=== PATIENT | female | born 1955 | race Caucasian/White ===

== ENCOUNTER 2021-02-13 17:32 | Inpatient (IN) | payer MEDICARE ==
[2021-02-13 17:49] VITALS: BMI 29.0
[2021-02-13] MEDS ORDERED: Acetaminophen 325 MG TAB PO PRN (18:15)
[2021-02-13] MEDS ORDERED: Ondansetron PF 4 MG/2 ML Vial IVP PRN (18:15)
[2021-02-13] MEDS: Morphine 4 MG/ML VIAL SLOW IVP PRN (19:51)
[2021-02-13] MEDS: Lactated Ringer's 1,000 ML IV SCH (19:53)
[2021-02-13] MEDS: HYDROcodone/Acetaminophen 10/325 mg Tablet PO PRN (22:42)
[2021-02-13] MEDS: Cefepime 1 GM in Sodium Chloride 0.9% 100 ML IVPB SCH (23:15)
[2021-02-14] MEDS: Morphine 4 MG/ML VIAL SLOW IVP PRN ×6 (02:06→22:45)
[2021-02-14 05:22] LABS: #Eosinphils 0.1 10x3/uL (0.0-0.5); #Monocytes 0.8 10x3/uL (0.0-1.1); #Neutrophils 10.1 10x3/uL (1.5-8.4); %Basophils 0.3 % (0.0-2.0); %Lymphocytes 7.9 % (18.0-47.0); %Monocytes 6.5 % (0.0-10.0); %Neutrophils 83.4 % (40.0-75.0); Hemoglobin 11.4 g/dL (12.0-15.5); Mean Corpuscular HGB CONC 34.1 g/dL (32.0-36.0); Mean Corpuscular Hemoglobin 32.3 pg (27.0-33.0); Mean Corpuscular Volume 94.6 fl (81.6-98.3); Mean Platelet Volume 10.4 fl (7.4-10.4); Platelet Count 132 10x3/uL (150-450); RBC Distribution Width 12.6 % (11.5-14.5); Red Blood Cell (RBC) Count 3.53 10x6/uL (3.90-5.03); White Blood Cell (WBC) Count 12.1 10x3/uL (3.5-10.5)
[2021-02-14 05:37] LABS: Anion Gap 11 mmol/L (10-20); BUN (Urea Nitrogen) 13 mg/dL (9.8-20.1); Calc. Creatinine Clearance 98 mL/min (70-130); Calcium 9.2 mg/dL (7.8-10.44); Carbon Dioxide 24 mmol/L (23-31); Chloride 105 mmol/L (98-107); Glucose 103 mg/dL (80-115); Potassium 3.1 mmol/L (3.5-5.1); Sodium 137 mmol/L (136-145)
[2021-02-14] MEDS: Lactated Ringer's 1,000 ML IV SCH ×2 (05:46→19:21)
[2021-02-14] MEDS ORDERED: Vancomycin HCl 1 GM in Sodium Chloride 0.9% 250 ML 250 ML IVPB SCH (08:00)
[2021-02-14] MEDS ORDERED: Potassium Chloride 20 MEQ TAB PO SCH (08:30)
[2021-02-14] MEDS: HYDROcodone/Acetaminophen 10/325 mg Tablet PO PRN ×2 (08:32→20:16)
[2021-02-14] MEDS: Bupropion 150 MG XL TAB PO SCH (09:58)
[2021-02-14] MEDS: Aspirin 81 mg Enteric Coated Tablet PO SCH (09:58)
[2021-02-14] MEDS: Cefepime 1 GM in Sodium Chloride 0.9% 100 ML IVPB SCH (12:31)
[2021-02-14] MEDS ORDERED: Morphine 4 MG/ML VIAL SLOW IVP SCH (13:30)
[2021-02-14] MEDS: Atorvastatin Calcium 40 MG TAB PO SCH (20:16)
[2021-02-14] MEDS: Vancomycin HCl 1 GM in Sodium Chloride 0.9% 250 ML 250 ML IVPB SCH (20:19)
[2021-02-14] MEDS: traZODone HCl 50 MG TAB PO SCH (20:30)
[2021-02-15] MEDS: Cefepime 1 GM in Sodium Chloride 0.9% 100 ML IVPB SCH ×2 (01:05→13:03)
[2021-02-15] MEDS: HYDROcodone/Acetaminophen 10/325 mg Tablet PO PRN ×3 (02:05→21:25)
[2021-02-15] MEDS: Lactated Ringer's 1,000 ML IV SCH ×2 (03:30→08:15)
[2021-02-15] MEDS: Morphine 4 MG/ML VIAL SLOW IVP PRN ×4 (05:57→19:26)
[2021-02-15 06:09] LABS: #Eosinphils 0.1 10x3/uL (0.0-0.5); #Monocytes 0.7 10x3/uL (0.0-1.1); #Neutrophils 7.6 10x3/uL (1.5-8.4); %Basophils 0.4 % (0.0-2.0); %Eosinophils 1.3 % (0.0-6.0); %Lymphocytes 11.6 % (18.0-47.0); %Monocytes 7.5 % (0.0-10.0); %Neutrophils 78.6 % (40.0-75.0); Hemoglobin 10.7 g/dL (12.0-15.5); Mean Corpuscular HGB CONC 34.4 g/dL (32.0-36.0); Mean Corpuscular Hemoglobin 31.8 pg (27.0-33.0); Mean Corpuscular Volume 92.6 fl (81.6-98.3); Platelet Count 147 10x3/uL (150-450); RBC Distribution Width 12.6 % (11.5-14.5); Red Blood Cell (RBC) Count 3.36 10x6/uL (3.90-5.03); White Blood Cell (WBC) Count 9.7 10x3/uL (3.5-10.5)
[2021-02-15 06:19] LABS: Anion Gap 11 mmol/L (10-20); BUN (Urea Nitrogen) 9 mg/dL (9.8-20.1); Calc. Creatinine Clearance 120 mL/min (70-130); Calcium 9.4 mg/dL (7.8-10.44); Carbon Dioxide 27 mmol/L (23-31); Chloride 107 mmol/L (98-107); Glucose 113 mg/dL (80-115); Potassium 3.8 mmol/L (3.5-5.1); Sodium 141 mmol/L (136-145)
[2021-02-15] MEDS: Aspirin 81 mg Enteric Coated Tablet PO SCH (08:10)
[2021-02-15] MEDS: Bupropion 150 MG XL TAB PO SCH (08:10)
[2021-02-15] MEDS: Vancomycin HCl 1 GM in Sodium Chloride 0.9% 250 ML 250 ML IVPB SCH ×2 (08:10→21:32)
[2021-02-15] MEDS: Enoxaparin Sodium 40 MG/0.4 ML SYRINGE SC SCH (08:10)
[2021-02-15] MEDS ORDERED: Polyethylene Glycol 3350 17 GM Packet PO PRN (09:39)
[2021-02-15] MEDS ORDERED: Senokot 8.6 MG TAB PO SCH (09:45)
[2021-02-15] MEDS: Ketorolac Tromethamine 30 MG/ML VIAL IVP PRN (13:10)
[2021-02-15] MEDS: Senokot 8.6 MG TAB PO SCH (21:25)
[2021-02-15] MEDS: Atorvastatin Calcium 40 MG TAB PO SCH (21:26)
[2021-02-15] MEDS: traZODone HCl 50 MG TAB PO SCH (22:28)
[2021-02-16] MEDS: Cefepime 1 GM in Sodium Chloride 0.9% 100 ML IVPB SCH (00:11)
[2021-02-16] MEDS: Lactated Ringer's 1,000 ML IV SCH ×4 (00:17→12:41)
[2021-02-16] MEDS: Morphine 4 MG/ML VIAL SLOW IVP PRN ×5 (02:28→23:02)
[2021-02-16 07:55] LABS: Vancomycin, Trough 10.1 ug/mL
[2021-02-16] MEDS: Enoxaparin Sodium 40 MG/0.4 ML SYRINGE SC SCH (08:48)
[2021-02-16] MEDS: Aspirin 81 mg Enteric Coated Tablet PO SCH (08:49)
[2021-02-16] MEDS: Vancomycin HCl 1 GM in Sodium Chloride 0.9% 250 ML 250 ML IVPB SCH (08:49)
[2021-02-16] MEDS: HYDROcodone/Acetaminophen 10/325 mg Tablet PO PRN ×3 (08:49→21:25)
[2021-02-16] MEDS: Bupropion 150 MG XL TAB PO SCH (08:49)
[2021-02-16] MEDS ORDERED: Piperacillin/Tazobactam 4.5 GM in Sodium Chloride 0.9% 100 ML IVPB SCH (12:00)
[2021-02-16] MEDS ORDERED: Piperacillin/Tazobactam 3.375 GM in Sodium Chloride 0.9% 100 ML IVPB SCH (12:00)
[2021-02-16] MEDS: Piperacillin/Tazobactam 3.375 GM in Sodium Chloride 0.9% 100 ML IVPB SCH (18:28)
[2021-02-16] MEDS ORDERED: VANCOMYCIN 1.25 GM/250 ML BAG 1.25 GM in Premix Bag 1 BAG IVPB SCH (20:00)
[2021-02-16] MEDS: traZODone HCl 50 MG TAB PO SCH (21:20)
[2021-02-16] MEDS: Metoprolol Tartrate 50 MG TAB PO SCH (21:23)
[2021-02-16] MEDS: Senokot 8.6 MG TAB PO SCH (21:24)
[2021-02-16] MEDS: Atorvastatin Calcium 40 MG TAB PO SCH (21:24)
[2021-02-16] MEDS: VANCOMYCIN 1.25 GM/250 ML BAG 1.25 GM in Premix Bag 1 BAG IVPB SCH (22:29)
[2021-02-17] MEDS: Piperacillin/Tazobactam 3.375 GM in Sodium Chloride 0.9% 100 ML IVPB SCH ×3 (02:28→17:10)
[2021-02-17] MEDS: HYDROcodone/Acetaminophen 10/325 mg Tablet PO PRN (02:59)
[2021-02-17 04:52] LABS: #Eosinphils 0.2 10x3/uL (0.0-0.5); #Monocytes 1.3 10x3/uL (0.0-1.1); #Neutrophils 6.2 10x3/uL (1.5-8.4); %Basophils 0.5 % (0.0-2.0); %Eosinophils 1.7 % (0.0-6.0); %Lymphocytes 12.3 % (18.0-47.0); %Monocytes 14.3 % (0.0-10.0); %Neutrophils 70.2 % (40.0-75.0); Hemoglobin 10.3 g/dL (12.0-15.5); Mean Corpuscular HGB CONC 33.3 g/dL (32.0-36.0); Mean Corpuscular Hemoglobin 32.1 pg (27.0-33.0); Mean Corpuscular Volume 96.3 fl (81.6-98.3); Platelet Count 171 10x3/uL (150-450); Red Blood Cell (RBC) Count 3.21 10x6/uL (3.90-5.03); White Blood Cell (WBC) Count 8.9 10x3/uL (3.5-10.5)
[2021-02-17 05:02] LABS: Anion Gap 13 mmol/L (10-20); BUN (Urea Nitrogen) 10 mg/dL (9.8-20.1); Calc. Creatinine Clearance 114 mL/min (70-130); Calcium 9.5 mg/dL (7.8-10.44); Carbon Dioxide 24 mmol/L (23-31); Chloride 106 mmol/L (98-107); Glucose 117 mg/dL (80-115); Potassium 4.4 mmol/L (3.5-5.1); Sodium 139 mmol/L (136-145)
[2021-02-17] MEDS: Ketorolac Tromethamine 30 MG/ML VIAL IVP PRN ×2 (07:17→17:18)
[2021-02-17] MEDS: Morphine 4 MG/ML VIAL SLOW IVP PRN ×5 (09:05→22:43)
[2021-02-17] MEDS: Bupropion 150 MG XL TAB PO SCH (09:05)
[2021-02-17] MEDS: Losartan 25 MG TAB PO SCH (09:06)
[2021-02-17] MEDS: Enoxaparin Sodium 40 MG/0.4 ML SYRINGE SC SCH (09:06)
[2021-02-17] MEDS: Metoprolol Tartrate 50 MG TAB PO SCH ×2 (09:06→19:36)
[2021-02-17] MEDS: Aspirin 81 mg Enteric Coated Tablet PO SCH (09:06)
[2021-02-17] MEDS: Lactated Ringer's 1,000 ML IV SCH (09:07)
[2021-02-17] MEDS: VANCOMYCIN 1.25 GM/250 ML BAG 1.25 GM in Premix Bag 1 BAG IVPB SCH ×2 (10:09→21:21)
[2021-02-17] MEDS: Senokot 8.6 MG TAB PO SCH (19:36)
[2021-02-17] MEDS: Atorvastatin Calcium 40 MG TAB PO SCH (19:36)
[2021-02-17] MEDS: traZODone HCl 50 MG TAB PO SCH (21:21)
[2021-02-18] MEDS: Morphine 4 MG/ML VIAL SLOW IVP PRN ×5 (02:57→19:53)
[2021-02-18] MEDS: Piperacillin/Tazobactam 3.375 GM in Sodium Chloride 0.9% 100 ML IVPB SCH ×3 (03:00→19:54)
[2021-02-18 08:03] LABS: Vancomycin, Trough 20.4 ug/mL
[2021-02-18] MEDS: HYDROcodone/Acetaminophen 10/325 mg Tablet PO PRN ×3 (08:15→22:27)
[2021-02-18] MEDS: Bupropion 150 MG XL TAB PO SCH (08:17)
[2021-02-18] MEDS: Metoprolol Tartrate 50 MG TAB PO SCH ×2 (08:18→20:13)
[2021-02-18] MEDS: Losartan 25 MG TAB PO SCH (08:18)
[2021-02-18] MEDS: Aspirin 81 mg Enteric Coated Tablet PO SCH (08:18)
[2021-02-18] MEDS: Enoxaparin Sodium 40 MG/0.4 ML SYRINGE SC SCH (08:20)
[2021-02-18] MEDS: VANCOMYCIN 1.25 GM/250 ML BAG 1.25 GM in Premix Bag 1 BAG IVPB SCH (08:21)
[2021-02-18] MEDS ORDERED: Piperacillin/Tazobactam 3.375 GM VIAL ONE (19:36)
[2021-02-18] MEDS: Senokot 8.6 MG TAB PO SCH (20:13)
[2021-02-18] MEDS: Atorvastatin Calcium 40 MG TAB PO SCH (20:13)
[2021-02-18] MEDS: traZODone HCl 50 MG TAB PO SCH (20:13)
[2021-02-19] MEDS: Morphine 4 MG/ML VIAL SLOW IVP PRN ×6 (00:53→22:39)
[2021-02-19] MEDS: VANCOMYCIN 1.25 GM/250 ML BAG 1.25 GM in Premix Bag 1 BAG IVPB SCH ×3 (01:00→21:54)
[2021-02-19] MEDS: Lactated Ringer's 1,000 ML IV SCH (04:45)
[2021-02-19] MEDS: Piperacillin/Tazobactam 3.375 GM in Sodium Chloride 0.9% 100 ML IVPB SCH ×3 (05:30→19:12)
[2021-02-19] MEDS: Bupropion 150 MG XL TAB PO SCH (07:58)
[2021-02-19] MEDS: Enoxaparin Sodium 40 MG/0.4 ML SYRINGE SC SCH (07:58)
[2021-02-19] MEDS: Losartan 25 MG TAB PO SCH (07:59)
[2021-02-19] MEDS: Aspirin 81 mg Enteric Coated Tablet PO SCH (07:59)
[2021-02-19] MEDS: Metoprolol Tartrate 50 MG TAB PO SCH ×2 (07:59→20:46)
[2021-02-19] MEDS: HYDROcodone/Acetaminophen 10/325 mg Tablet PO PRN ×2 (10:27→17:26)
[2021-02-19] MEDS: Atorvastatin Calcium 40 MG TAB PO SCH (20:46)
[2021-02-19] MEDS: traZODone HCl 50 MG TAB PO SCH (20:46)
[2021-02-19] MEDS: Senokot 8.6 MG TAB PO SCH (20:46)
[2021-02-20] MEDS: Piperacillin/Tazobactam 3.375 GM in Sodium Chloride 0.9% 100 ML IVPB SCH ×3 (02:11→18:42)
[2021-02-20] MEDS: Morphine 4 MG/ML VIAL SLOW IVP PRN ×6 (02:20→23:16)
[2021-02-20] MEDS: VANCOMYCIN 1.25 GM/250 ML BAG 1.25 GM in Premix Bag 1 BAG IVPB SCH ×2 (08:36→23:35)
[2021-02-20] MEDS: Bupropion 150 MG XL TAB PO SCH (08:37)
[2021-02-20] MEDS: Enoxaparin Sodium 40 MG/0.4 ML SYRINGE SC SCH (08:37)
[2021-02-20] MEDS: Losartan 25 MG TAB PO SCH (08:37)
[2021-02-20] MEDS: Metoprolol Tartrate 50 MG TAB PO SCH ×2 (08:37→20:30)
[2021-02-20] MEDS: Aspirin 81 mg Enteric Coated Tablet PO SCH (08:37)
[2021-02-20 08:44] LABS: #Basophils 0.1 10x3/uL (0.0-0.2); #Eosinphils 0.2 10x3/uL (0.0-0.5); #Monocytes 0.7 10x3/uL (0.0-1.1); #Neutrophils 4.7 10x3/uL (1.5-8.4); %Basophils 1.1 % (0.0-2.0); %Eosinophils 2.6 % (0.0-6.0); %Lymphocytes 19.2 % (18.0-47.0); %Monocytes 9.5 % (0.0-10.0); %Neutrophils 62.8 % (40.0-75.0); Hemoglobin 10.4 g/dL (12.0-15.5); Mean Corpuscular HGB CONC 33.2 g/dL (32.0-36.0); Mean Corpuscular Hemoglobin 31.6 pg (27.0-33.0); Mean Corpuscular Volume 95.1 fl (81.6-98.3); Mean Platelet Volume 9.9 fl (7.4-10.4); Platelet Count 206 10x3/uL (150-450); RBC Distribution Width 12.8 % (11.5-14.5); Red Blood Cell (RBC) Count 3.29 10x6/uL (3.90-5.03); White Blood Cell (WBC) Count 7.5 10x3/uL (3.5-10.5)
[2021-02-20 08:56] LABS: Vancomycin, Trough 19.5 ug/mL
[2021-02-20 08:58] LABS: Anion Gap 11 mmol/L (10-20); BUN (Urea Nitrogen) 13 mg/dL (9.8-20.1); Calc. Creatinine Clearance 105 mL/min (70-130); Calcium 9.4 mg/dL (7.8-10.44); Carbon Dioxide 27 mmol/L (23-31); Chloride 107 mmol/L (98-107); Glucose 119 mg/dL (80-115); Potassium 3.7 mmol/L (3.5-5.1); Sodium 141 mmol/L (136-145)
[2021-02-20] MEDS: HYDROcodone/Acetaminophen 10/325 mg Tablet PO PRN ×2 (11:02→19:22)
[2021-02-20] MEDS: Lactated Ringer's 1,000 ML IV SCH (15:00)
[2021-02-20] MEDS: traZODone HCl 50 MG TAB PO SCH (20:29)
[2021-02-20] MEDS: Senokot 8.6 MG TAB PO SCH (20:29)
[2021-02-20] MEDS: Atorvastatin Calcium 40 MG TAB PO SCH (20:30)
[2021-02-21] MEDS: Morphine 4 MG/ML VIAL SLOW IVP PRN ×7 (02:16→23:04)
[2021-02-21] MEDS: Piperacillin/Tazobactam 3.375 GM in Sodium Chloride 0.9% 100 ML IVPB SCH ×3 (02:16→19:03)
[2021-02-21] MEDS: VANCOMYCIN 1.25 GM/250 ML BAG 1.25 GM in Premix Bag 1 BAG IVPB SCH (08:25)
[2021-02-21] MEDS: Aspirin 81 mg Enteric Coated Tablet PO SCH (08:26)
[2021-02-21] MEDS: Losartan 25 MG TAB PO SCH (08:26)
[2021-02-21] MEDS: Enoxaparin Sodium 40 MG/0.4 ML SYRINGE SC SCH (08:26)
[2021-02-21] MEDS: Bupropion 150 MG XL TAB PO SCH (08:26)
[2021-02-21] MEDS: Metoprolol Tartrate 50 MG TAB PO SCH ×2 (08:26→21:14)
[2021-02-21] MEDS: HYDROcodone/Acetaminophen 10/325 mg Tablet PO PRN ×2 (12:16→19:03)
[2021-02-21] MEDS: traZODone HCl 50 MG TAB PO SCH (21:14)
[2021-02-21] MEDS: Senokot 8.6 MG TAB PO SCH (21:15)
[2021-02-21] MEDS: Atorvastatin Calcium 40 MG TAB PO SCH (21:15)
[2021-02-22] MEDS: VANCOMYCIN 1.25 GM/250 ML BAG 1.25 GM in Premix Bag 1 BAG IVPB SCH ×2 (00:02→08:43)
[2021-02-22] MEDS: Piperacillin/Tazobactam 3.375 GM in Sodium Chloride 0.9% 100 ML IVPB SCH ×2 (02:12→10:51)
[2021-02-22] MEDS: Morphine 4 MG/ML VIAL SLOW IVP PRN ×5 (08:00→21:22)
[2021-02-22] MEDS: HYDROcodone/Acetaminophen 10/325 mg Tablet PO PRN ×3 (08:01→21:19)
[2021-02-22 08:32] LABS: Vancomycin, Trough 22.5 ug/mL
[2021-02-22] MEDS: Losartan 25 MG TAB PO SCH (08:42)
[2021-02-22] MEDS: Bupropion 150 MG XL TAB PO SCH (08:42)
[2021-02-22] MEDS: Aspirin 81 mg Enteric Coated Tablet PO SCH (08:42)
[2021-02-22] MEDS: Metoprolol Tartrate 50 MG TAB PO SCH ×2 (08:42→21:21)
[2021-02-22] MEDS: Enoxaparin Sodium 40 MG/0.4 ML SYRINGE SC SCH (10:29)
[2021-02-22] MEDS ORDERED: Clindamycin 150 MG CAP PO SCH (13:45)
[2021-02-22] MEDS: Clindamycin 150 MG CAP PO SCH (17:47)
[2021-02-22] MEDS ORDERED: Vancomycin HCl 1 GM in Sodium Chloride 0.9% 250 ML 250 ML IVPB SCH (21:00)
[2021-02-22] MEDS: Senokot 8.6 MG TAB PO SCH (21:21)
[2021-02-22] MEDS: Atorvastatin Calcium 40 MG TAB PO SCH (21:22)
[2021-02-22] MEDS: traZODone HCl 50 MG TAB PO SCH (21:31)
[2021-02-23] MEDS: Morphine 4 MG/ML VIAL SLOW IVP PRN ×4 (00:21→12:58)
[2021-02-23] MEDS: Clindamycin 150 MG CAP PO SCH ×4 (00:21→19:55)
[2021-02-23] MEDS ORDERED: HYDROcodone/Acetaminophen 5/325 mg Tablet PO SCH (00:45)
[2021-02-23] MEDS: HYDROcodone/Acetaminophen 10/325 mg Tablet PO PRN ×4 (04:41→20:43)
[2021-02-23 04:50] LABS: #Basophils 0.1 10x3/uL (0.0-0.2); #Eosinphils 0.2 10x3/uL (0.0-0.5); #Monocytes 0.5 10x3/uL (0.0-1.1); #Neutrophils 6.8 10x3/uL (1.5-8.4); %Basophils 0.5 % (0.0-2.0); %Eosinophils 1.9 % (0.0-6.0); %Lymphocytes 16.2 % (18.0-47.0); %Monocytes 5.1 % (0.0-10.0); %Neutrophils 74.1 % (40.0-75.0); Hemoglobin 10.5 g/dL (12.0-15.5); Mean Corpuscular HGB CONC 33.4 g/dL (32.0-36.0); Mean Corpuscular Hemoglobin 31.9 pg (27.0-33.0); Mean Corpuscular Volume 95.4 fl (81.6-98.3); Mean Platelet Volume 9.8 fl (7.4-10.4); Platelet Count 202 10x3/uL (150-450); RBC Distribution Width 12.4 % (11.5-14.5); Red Blood Cell (RBC) Count 3.29 10x6/uL (3.90-5.03); White Blood Cell (WBC) Count 9.2 10x3/uL (3.5-10.5)
[2021-02-23 05:06] LABS: Anion Gap 10 mmol/L (10-20); BUN (Urea Nitrogen) 11 mg/dL (9.8-20.1); Calc. Creatinine Clearance 106 mL/min (70-130); Calcium 9.2 mg/dL (7.8-10.44); Carbon Dioxide 26 mmol/L (23-31); Chloride 109 mmol/L (98-107); Glucose 110 mg/dL (80-115); Potassium 3.8 mmol/L (3.5-5.1); Sodium 141 mmol/L (136-145)
[2021-02-23] MEDS: Bupropion 150 MG XL TAB PO SCH (08:37)
[2021-02-23] MEDS: Enoxaparin Sodium 40 MG/0.4 ML SYRINGE SC SCH (08:38)
[2021-02-23] MEDS: Aspirin 81 mg Enteric Coated Tablet PO SCH (08:38)
[2021-02-23] MEDS: Metoprolol Tartrate 50 MG TAB PO SCH ×2 (08:38→20:43)
[2021-02-23] MEDS: Losartan 25 MG TAB PO SCH (08:39)
[2021-02-23] MEDS ORDERED: Mag-Al Plus 1200 MG/1200 MG/120 MG/30 ML UDCUP PO PRN (14:06)
[2021-02-23] MEDS ORDERED: Famotidine 20 MG TAB PO SCH (14:15)
[2021-02-23] MEDS ORDERED: Ketorolac Tromethamine 30 MG/ML VIAL IVP SCH (14:15)
[2021-02-23] MEDS: traZODone HCl 50 MG TAB PO SCH (20:44)
[2021-02-23] MEDS: Senokot 8.6 MG TAB PO SCH (20:45)
[2021-02-23] MEDS: Atorvastatin Calcium 40 MG TAB PO SCH (20:45)
[2021-02-24] MEDS: Clindamycin 150 MG CAP PO SCH ×3 (00:50→12:45)
[2021-02-24] MEDS: HYDROcodone/Acetaminophen 10/325 mg Tablet PO PRN ×2 (01:28→08:53)
[2021-02-24 06:47] LABS: #Basophils 0.1 10x3/uL (0.0-0.2); #Eosinphils 0.1 10x3/uL (0.0-0.5); #Monocytes 0.5 10x3/uL (0.0-1.1); #Neutrophils 7.2 10x3/uL (1.5-8.4); %Basophils 0.7 % (0.0-2.0); %Eosinophils 1.3 % (0.0-6.0); %Lymphocytes 14.4 % (18.0-47.0); %Monocytes 5.7 % (0.0-10.0); %Neutrophils 76.8 % (40.0-75.0); Hemoglobin 10.6 g/dL (12.0-15.5); Mean Corpuscular HGB CONC 33.5 g/dL (32.0-36.0); Mean Corpuscular Hemoglobin 31.8 pg (27.0-33.0); Mean Corpuscular Volume 94.9 fl (81.6-98.3); Mean Platelet Volume 9.9 fl (7.4-10.4); Platelet Count 208 10x3/uL (150-450); RBC Distribution Width 12.3 % (11.5-14.5); Red Blood Cell (RBC) Count 3.33 10x6/uL (3.90-5.03); White Blood Cell (WBC) Count 9.4 10x3/uL (3.5-10.5)
[2021-02-24 07:02] LABS: Anion Gap 14 mmol/L (10-20); BUN (Urea Nitrogen) 10 mg/dL (9.8-20.1); CRP (Inflammatory) 2.05 mg/dL (= or < 0.5); Calc. Creatinine Clearance 103 mL/min (70-130); Calcium 9.4 mg/dL (7.8-10.44); Carbon Dioxide 25 mmol/L (23-31); Chloride 107 mmol/L (98-107); Glucose 82 mg/dL (80-115); Potassium 3.9 mmol/L (3.5-5.1); Sodium 142 mmol/L (136-145)
[2021-02-24] MEDS: Bupropion 150 MG XL TAB PO SCH (08:49)
[2021-02-24] MEDS: Losartan 25 MG TAB PO SCH (08:50)
[2021-02-24] MEDS: Metoprolol Tartrate 50 MG TAB PO SCH (08:50)
[2021-02-24] MEDS: Aspirin 81 mg Enteric Coated Tablet PO SCH (08:50)
[2021-02-24] MEDS: Enoxaparin Sodium 40 MG/0.4 ML SYRINGE SC SCH (08:50)
[2021-02-24] MEDS ORDERED: Famotidine 20 MG TAB PO SCH (09:00)
[2021-02-24 11:39] VITALS: BP 150/72; TEMP 97.9
== END 2021-02-24 13:30 | disposition home or self-care (01) | DRG 872 ==
LOC: CSHTELE 17:32 → OBSVTOIN 18:15
PROVIDERS: ADMIT Internal Medicine; ATTEND Internal Medicine
DX: A41.9 Sepsis, unspecified organism (principal); L03.111 Cellulitis of right axilla; N17.9 Acute kidney failure, unspecified; L02.411 Cutaneous abscess of right axilla; E78.5 Hyperlipidemia, unspecified; E86.0 Dehydration; J44.9 Chronic obstructive pulmonary disease, unspecified; F32.9 Major depressive disorder, single episode, unspecified; Z87.891 Personal history of nicotine dependence; K21.9 Gastro-esophageal reflux disease without esophagitis; Z90.710 Acquired absence of both cervix and uterus; I44.7 Left bundle-branch block, unspecified; Z95.810 Presence of automatic (implantable) cardiac defibrillator; Z86.14 Personal history of Methicillin resistant Staphylococcus aureus infection; Z79.82 Long term (current) use of aspirin; Z79.891 Long term (current) use of opiate analgesic; Z79.899 Other long term (current) drug therapy; R65.20 Severe sepsis without septic shock
CPT/HCPCS: 36415; 76999; 80048; 80202; 82565; 84520; 85025; 86140; 94760; J0692; J1650; J1885; J2270; J2543; J3370; J3490; J7050; J7120